=== PATIENT | female | born 1945 | race Caucasian/White ===

== ENCOUNTER → 2017-06-14 | Outpatient (CLI) | payer BC | END | disposition home or self-care (01) | LOC: HKI 13:38 | DX: M70.62 Trochanteric bursitis, left hip (principal); Y93.9 Activity, unspecified; M76.32 Iliotibial band syndrome, left leg; M76.52 Patellar tendinitis, left knee; E78.00 Pure hypercholesterolemia, unspecified | CPT/HCPCS: 73502; 73564-50 ==

== ENCOUNTER → 2017-09-17 | Outpatient (CLI) | payer BC | END | disposition home or self-care (01) | LOC: HKI 14:14 | DX: M70.62 Trochanteric bursitis, left hip (principal); M70.61 Trochanteric bursitis, right hip | CPT/HCPCS: 20610 ==